=== PATIENT | male | born 1950 | race Caucasian/White ===

== ENCOUNTER 2022-07-25 20:10 | Inpatient (IN) | payer MEDICARE, MEDICAID ==
[~2022-07-25] VITALS: Ht 188 cm; Wt 140.8 kg
[~2022-07-25 20:10] MED LIST: ALBU0.5N2 IN; ALBUAER3 IN; APIX5TAB PO; BUPR-160 PO; DILT120C54 PO; DONE5TAB11 PO; FLUT110A INH; FURO40TA4 PO; GABA300C10 PO; HYDR-392 PO; INSU1INJ14 SC; LEVO750T8 PO; PANT40T PO; POTA-220 PO; PRIM50TA27 PO; ROPI1TAB PO; ZOLP10TA PO
[2022-07-25 21:24] LABS: Basophils # (auto) 0 10 ^3/uL (0-0.2); Basophils % (auto) 0.1 % (0.0-2.0); Eosinophils # (auto) 0 10 ^3/uL (0-0.8); Eosinophils % (auto) 0.1 % (0.0-7.0); Hematocrit 39.6 % (41.0-53.0); Hemoglobin 12.5 g/dL (13.5-17.5); Lymphocytes # (auto) 0.4 10 ^3/uL (0.4-5.4); Lymphocytes % (auto) 6.6 % (10.0-50.0); Mean Corpuscular Hemoglobin 28.6 pg (28.0-32.0); Mean Corpuscular Hgb Conc. 31.5 g/dL (32.0-36.0); Monocytes # (auto) 0.2 10 ^3/uL (0-1.3); Neutrophils # (auto) 5.9 10 ^3/uL (1.6-8.6); Neutrophils % (auto) 90.2 % (37.0-80.0); Nucleated Red Blood Cells % 0.3 %; Red Blood Cells 4.36 10^6/uL (4.5-5.90); Red Cell Distribution Width 15.3 % (11.8-14.3); White Blood Cell 6.6 10^3/uL (4.4-10.8)
[2022-07-25 21:35] LABS: Albumin 3.5 g/dL (3.4-5.0); BUN/Creatinine Ratio 32.4 (10.0-20.0); Calcium 9.7 mg/dL (8.5-10.1); Potassium 4.6 mmol/L (3.5-5.1)
[2022-07-25 21:37] LABS: Bilirubin, Total 0.3 mg/dL (0.2-1.0); Total Protein 7.8 g/dL (6.4-8.2)
[2022-07-25 21:38] LABS: INR 1.07 (0.9-1.15); Partial Thromboplastin Time 30.1 sec (24.6-33.4)
[2022-07-25] MEDS ORDERED: LACTATED RINGER S IV ONE (23:00)
[2022-07-25] MEDS ORDERED: cefTRIAXone 1GM/50ML D5W 50 ML IV ONE (23:00)
[2022-07-25] MEDS ORDERED: IPRATROPIUM BROM 0.5 MG/2.5ML INH SOL NEB ONE (23:00)
[2022-07-25] MEDS ORDERED: DexAMETHasone SOD PHOS 10MG/1ML VIAL INJ IV ONE (23:00)
[2022-07-25] MEDS ORDERED: ALBUTEROL SULF 2.5 MG/0.5ML(0.5%) NEB SOLN NEB ONE (23:00)
[2022-07-25] MEDS ORDERED: AZITHROMYCIN 500MG/ 250ML 250 ML IV ONE (23:00)
[2022-07-25 23:53] VITALS: BP 115/74
[2022-07-26] VITALS (27 sets, daily range): BP systolic 99–167; BP diastolic 49–96
[2022-07-26] MEDS ORDERED: ONDANSETRON HCL 4 MG/2 ML VIAL IV PRN (05:00)
[2022-07-26] MEDS ORDERED: NITROGLYCERIN 0.4 MG SL TAB SL PRN (05:00)
[2022-07-26] MEDS ORDERED: ALBUTEROL SULF 2.5 MG/0.5ML(0.5%) NEB SOLN NEB PRN (05:00)
[2022-07-26] MEDS ORDERED: ACETAMINOPHEN 325 MG TAB PO PRN (05:00)
[2022-07-26] MEDS ORDERED: IPRATROPIUM BROM 0.5 MG/2.5ML INH SOL NEB SCH (06:00)
[2022-07-26] MEDS: cefTRIAXone 1GM/50ML D5W 50 ML IV SCH (09:19)
[2022-07-26] MEDS ORDERED: AZITHROMYCIN 500MG/ 250ML 250 ML IV SCH (10:00)
[2022-07-26] MEDS: dilTIAZem 120MG ER CAP PO SCH (10:00)
[2022-07-26] MEDS: AZITHROMYCIN 500MG/ 250ML 250 ML IV SCH (10:47)
[2022-07-26] MEDS: methylPREDNISolone SOD SUCC 125 MG/2 ML VL IV SCH ×2 (10:47→22:00)
[2022-07-26] MEDS: FUROSEMIDE 40 MG TAB PO SCH (10:48)
[2022-07-26] MEDS: APIXABAN 5 MG TAB PO SCH ×2 (10:48→22:00)
[2022-07-26] MEDS: traMADol HCL 50 MG TAB PO PRN (14:52)
[2022-07-26] MEDS: BUDESONIDE (INHALATION) 0.5 MG/2 ML NEB NEB SCH (18:55)
[2022-07-26] MEDS: ALBUTEROL SULF 2.5 MG/0.5ML(0.5%) NEB SOLN NEB SCH (18:55)
[2022-07-26] MEDS: IPRATROPIUM BROM 0.5 MG/2.5ML INH SOL NEB SCH (18:56)
[2022-07-27] VITALS (20 sets, daily range): BP systolic 143–176; BP diastolic 72–94
[2022-07-27 05:48] LABS: Basophils # (auto) 0 10 ^3/uL (0-0.2); Eosinophils # (auto) 0 10 ^3/uL (0-0.8); Hemoglobin 11.5 g/dL (13.5-17.5); Lymphocytes # (auto) 0.4 10 ^3/uL (0.4-5.4); Lymphocytes % (auto) 7.1 % (10.0-50.0); Mean Corpuscular Hemoglobin 29.7 pg (28.0-32.0); Mean Corpuscular Hgb Conc. 32.9 g/dL (32.0-36.0); Mean Corpuscular Volume 90.3 fL (80.0-100.0); Monocytes # (auto) 0.2 10 ^3/uL (0-1.3); Monocytes % (auto) 3.6 % (0.0-12.0); Neutrophils # (auto) 5.4 10 ^3/uL (1.6-8.6); Neutrophils % (auto) 89.3 % (37.0-80.0); Nucleated Red Blood Cells % 0.1 %; Red Blood Cells 3.87 10^6/uL (4.5-5.90); White Blood Cell 6.1 10^3/uL (4.4-10.8)
[2022-07-27 06:13] LABS: Calcium 9.5 mg/dL (8.5-10.1)
[2022-07-27] MEDS: traMADol HCL 50 MG TAB PO PRN (06:23)
[2022-07-27 06:29] LABS: Albumin 3.1 g/dL (3.4-5.0); BUN/Creatinine Ratio 29.9 (10.0-20.0); Bilirubin, Total 0.2 mg/dL (0.2-1.0); Total Protein 6.9 g/dL (6.4-8.2)
[2022-07-27] MEDS: IPRATROPIUM BROM 0.5 MG/2.5ML INH SOL NEB SCH ×4 (07:11→18:15)
[2022-07-27] MEDS: ALBUTEROL SULF 2.5 MG/0.5ML(0.5%) NEB SOLN NEB SCH ×4 (07:11→18:15)
[2022-07-27] MEDS: BUDESONIDE (INHALATION) 0.5 MG/2 ML NEB NEB SCH ×2 (07:12→18:16)
[2022-07-27] MEDS: cefTRIAXone 1GM/50ML D5W 50 ML IV SCH (09:01)
[2022-07-27] MEDS: dilTIAZem 120MG ER CAP PO SCH (10:00)
[2022-07-27] MEDS ORDERED: hydrALAZINE HCL 20 MG/ML VL IV PRN (10:15)
[2022-07-27] MEDS: methylPREDNISolone SOD SUCC 125 MG/2 ML VL IV SCH ×2 (10:42→22:04)
[2022-07-27] MEDS: AZITHROMYCIN 500MG/ 250ML 250 ML IV SCH (10:42)
[2022-07-27] MEDS: ALLOPURINOL 100 MG TAB PO SCH (10:43)
[2022-07-27] MEDS: APIXABAN 5 MG TAB PO SCH ×2 (10:43→22:04)
[2022-07-27] MEDS: FUROSEMIDE 40 MG TAB PO SCH (10:43)
[2022-07-28] VITALS (21 sets, daily range): BP systolic 120–169; BP diastolic 58–96
[2022-07-28] MEDS: ALBUTEROL SULF 2.5 MG/0.5ML(0.5%) NEB SOLN NEB SCH ×4 (00:24→20:40)
[2022-07-28] MEDS: IPRATROPIUM BROM 0.5 MG/2.5ML INH SOL NEB SCH ×4 (00:24→20:40)
[2022-07-28] MEDS: BUDESONIDE (INHALATION) 0.5 MG/2 ML NEB NEB SCH ×2 (05:54→20:40)
[2022-07-28] MEDS: cefTRIAXone 1GM/50ML D5W 50 ML IV SCH (09:14)
[2022-07-28 09:39] LABS: Basophils # (auto) 0 10 ^3/uL (0-0.2); Basophils % (auto) 0.3 % (0.0-2.0); Eosinophils # (auto) 0 10 ^3/uL (0-0.8); Hematocrit 40.3 % (41.0-53.0); Hemoglobin 12.7 g/dL (13.5-17.5); Lymphocytes # (auto) 0.5 10 ^3/uL (0.4-5.4); Lymphocytes % (auto) 7.9 % (10.0-50.0); Mean Corpuscular Hemoglobin 28.6 pg (28.0-32.0); Mean Corpuscular Hgb Conc. 31.4 g/dL (32.0-36.0); Monocytes # (auto) 0.4 10 ^3/uL (0-1.3); Monocytes % (auto) 6.6 % (0.0-12.0); Neutrophils # (auto) 5.8 10 ^3/uL (1.6-8.6); Neutrophils % (auto) 85.2 % (37.0-80.0); Nucleated Red Blood Cells % 0.2 %; Red Blood Cells 4.42 10^6/uL (4.5-5.90); Red Cell Distribution Width 15.2 % (11.8-14.3); White Blood Cell 6.8 10^3/uL (4.4-10.8)
[2022-07-28 09:55] LABS: Albumin 3.2 g/dL (3.4-5.0); Calcium 9.9 mg/dL (8.5-10.1); Potassium 4.2 mmol/L (3.5-5.1)
[2022-07-28 09:59] LABS: BUN/Creatinine Ratio 28.7 (10.0-20.0); Bilirubin, Total 0.3 mg/dL (0.2-1.0); Total Protein 6.8 g/dL (6.4-8.2)
[2022-07-28] MEDS: dilTIAZem 120MG ER CAP PO SCH (10:00)
[2022-07-28] MEDS: AZITHROMYCIN 500MG/ 250ML 250 ML IV SCH (10:09)
[2022-07-28] MEDS: APIXABAN 5 MG TAB PO SCH ×2 (10:10→22:09)
[2022-07-28] MEDS: ALLOPURINOL 100 MG TAB PO SCH (10:10)
[2022-07-28] MEDS: FUROSEMIDE 40 MG TAB PO SCH (10:10)
[2022-07-28] MEDS: methylPREDNISolone SOD SUCC 125 MG/2 ML VL IV SCH ×2 (10:11→22:08)
[2022-07-28] MEDS: traMADol HCL 50 MG TAB PO PRN ×2 (10:39→21:18)
[2022-07-28] MEDS: ROPINIROLE 4 MG PO SCH (22:08)
[2022-07-29] VITALS (26 sets, daily range): BP systolic 119–167; BP diastolic 67–104
[2022-07-29] MEDS: IPRATROPIUM BROM 0.5 MG/2.5ML INH SOL NEB SCH ×5 (00:06→23:36)
[2022-07-29] MEDS: ALBUTEROL SULF 2.5 MG/0.5ML(0.5%) NEB SOLN NEB SCH ×5 (00:06→23:36)
[2022-07-29 05:41] LABS: Basophils # (auto) 0 10 ^3/uL (0-0.2); Eosinophils # (auto) 0 10 ^3/uL (0-0.8); Hematocrit 41.4 % (41.0-53.0); Hemoglobin 13.2 g/dL (13.5-17.5); Lymphocytes # (auto) 0.4 10 ^3/uL (0.4-5.4); Lymphocytes % (auto) 5.7 % (10.0-50.0); Mean Corpuscular Hemoglobin 28.9 pg (28.0-32.0); Mean Corpuscular Hgb Conc. 31.9 g/dL (32.0-36.0); Mean Corpuscular Volume 90.7 fL (80.0-100.0); Monocytes # (auto) 0.2 10 ^3/uL (0-1.3); Monocytes % (auto) 3.2 % (0.0-12.0); Neutrophils # (auto) 6.9 10 ^3/uL (1.6-8.6); Neutrophils % (auto) 91.1 % (37.0-80.0); Nucleated Red Blood Cells % 0.3 %; Red Blood Cells 4.57 10^6/uL (4.5-5.90); White Blood Cell 7.6 10^3/uL (4.4-10.8)
[2022-07-29] MEDS: BUDESONIDE (INHALATION) 0.5 MG/2 ML NEB NEB SCH ×2 (06:10→18:03)
[2022-07-29 06:21] LABS: Albumin 3.2 g/dL (3.4-5.0); Calcium 9.6 mg/dL (8.5-10.1); Potassium 4.2 mmol/L (3.5-5.1)
[2022-07-29 06:24] LABS: BUN/Creatinine Ratio 33.7 (10.0-20.0); Bilirubin, Total 0.4 mg/dL (0.2-1.0); Total Protein 6.9 g/dL (6.4-8.2)
[2022-07-29] MEDS: ROPINIROLE 4 MG PO SCH ×3 (06:40→22:01)
[2022-07-29] MEDS: traMADol HCL 50 MG TAB PO PRN (07:47)
[2022-07-29] MEDS: cefTRIAXone 1GM/50ML D5W 50 ML IV SCH (09:13)
[2022-07-29] MEDS: FUROSEMIDE 40 MG TAB PO SCH (10:10)
[2022-07-29] MEDS: dilTIAZem 120MG ER CAP PO SCH (10:10)
[2022-07-29] MEDS: APIXABAN 5 MG TAB PO SCH ×2 (10:10→22:01)
[2022-07-29] MEDS: methylPREDNISolone SOD SUCC 125 MG/2 ML VL IV SCH ×2 (10:11→22:01)
[2022-07-29] MEDS: ALLOPURINOL 100 MG TAB PO SCH (10:11)
[2022-07-29] MEDS: AZITHROMYCIN 500MG/ 250ML 250 ML IV SCH (10:11)
[2022-07-29] MEDS: MORPHINE SULFATE INJ 2 MG/ml SYRG IV PRN (14:43)
[2022-07-30] VITALS (18 sets, daily range): BP systolic 125–163; BP diastolic 71–94
[2022-07-30] MEDS: ROPINIROLE 4 MG PO SCH ×2 (06:17→14:00)
[2022-07-30] MEDS: ALBUTEROL SULF 2.5 MG/0.5ML(0.5%) NEB SOLN NEB SCH ×2 (06:26→11:23)
[2022-07-30] MEDS: BUDESONIDE (INHALATION) 0.5 MG/2 ML NEB NEB SCH (06:26)
[2022-07-30] MEDS: IPRATROPIUM BROM 0.5 MG/2.5ML INH SOL NEB SCH ×2 (06:26→11:23)
[2022-07-30] MEDS: cefTRIAXone 1GM/50ML D5W 50 ML IV SCH (08:28)
[2022-07-30] MEDS: APIXABAN 5 MG TAB PO SCH (10:17)
[2022-07-30] MEDS: AZITHROMYCIN 500MG/ 250ML 250 ML IV SCH (10:17)
[2022-07-30] MEDS: ALLOPURINOL 100 MG TAB PO SCH (10:17)
[2022-07-30] MEDS: dilTIAZem 120MG ER CAP PO SCH (10:18)
[2022-07-30] MEDS: methylPREDNISolone SOD SUCC 125 MG/2 ML VL IV SCH (10:19)
[2022-07-30] MEDS: MORPHINE SULFATE INJ 2 MG/ml SYRG IV PRN (10:38)
[2022-07-30] MEDS: FUROSEMIDE 40 MG TAB PO SCH (10:41)
[2022-07-30] MEDS ORDERED: PRED20TA2 PO (15:34)
[2022-07-30] MEDS ORDERED: LEVO500T31 PO (15:34)
== END 2022-07-30 16:58 | disposition home or self-care (01) | DRG 177 ==
LOC: ER 20:10 → TELE 07-26 04:59 → DOU IN ICU 07-26 09:35
PROVIDERS: ADMIT Nurse Practitioner; ATTEND Nurse Practitioner Acute Care
PROC: 5A09357 Assistance with Respiratory Ventilation, Less than 24 Consecutive Hours, Continuous Positive Airway Pressure (ICD-10-PCS; principal; 2022-07-25)
PROC: 5A09357 Assistance with Respiratory Ventilation, Less than 24 Consecutive Hours, Continuous Positive Airway Pressure (ICD-10-PCS; 2022-07-26)
PROC: 5A09357 Assistance with Respiratory Ventilation, Less than 24 Consecutive Hours, Continuous Positive Airway Pressure (ICD-10-PCS; 2022-07-28)
DX: J15.6 Pneumonia due to other Gram-negative bacteria (principal); I50.21 Acute systolic (congestive) heart failure; J96.21 Acute and chronic respiratory failure with hypoxia; J96.22 Acute and chronic respiratory failure with hypercapnia; J44.1 Chronic obstructive pulmonary disease with (acute) exacerbation; E87.29 Other acidosis; E87.1 Hypo-osmolality and hyponatremia; J44.0 Chronic obstructive pulmonary disease with (acute) lower respiratory infection; E11.9 Type 2 diabetes mellitus without complications; M10.9 Gout, unspecified; R00.1 Bradycardia, unspecified; R79.89 Other specified abnormal findings of blood chemistry; I11.0 Hypertensive heart disease with heart failure; E86.0 Dehydration; D64.9 Anemia, unspecified; E66.01 Morbid (severe) obesity due to excess calories; G25.81 Restless legs syndrome; G47.33 Obstructive sleep apnea (adult) (pediatric); Z68.39 Body mass index [BMI] 39.0-39.9, adult; Z88.5 Allergy status to narcotic agent
CPT/HCPCS: 36415; 36600; 71045; 80053; 82805; 83036; 83880; 84484; 85025; 85379; 85610; 85730; 87081; 93005; 93306; 94640; 94660; 96365; 96366; 96368; 96375; 99291; G0378; J0696; J1100

== ENCOUNTER → 2022-09-18 | Outpatient (CLI) | payer MEDICARE, MEDICAID ==
[~2022-09-18] MED LIST changes: -BUPR-160 PO; +BUPR-346 PO; +GABA-1250 PO; -GABA300C10 PO; +LEVO500T31 PO; +PRED20TA2 PO
== END | disposition home or self-care (01) ==
LOC: RT 14:40
PROVIDERS: ATTEND Internal Medicine Pulmonary Disease
DX: J44.9 Chronic obstructive pulmonary disease, unspecified (principal)
CPT/HCPCS: 36600; 82805

== ENCOUNTER 2023-01-07 11:34 | Inpatient (IN) | payer BC, MEDICAID ==
[~2023-01-07] VITALS: Ht 185.4 cm; Wt 139.5 kg
[2023-01-07] VITALS (24 sets, daily range): BP systolic 92–178; BP diastolic 31–83; PULSE 53–94; RESP 12–26; TEMP 98–98.4; O2SAT 93–100
[2023-01-07 12:03] LABS: Basophils # (auto) 0.1 10 ^3/uL (0-0.2); Basophils % (auto) 0.6 % (0.0-2.0); Eosinophils # (auto) 0.2 10 ^3/uL (0-0.8); Lymphocytes # (auto) 1.3 10 ^3/uL (0.4-5.4); Mean Corpuscular Hemoglobin 24.4 pg (28.0-32.0); Mean Corpuscular Hgb Conc. 29.4 g/dL (32.0-36.0); Monocytes # (auto) 0.7 10 ^3/uL (0-1.3); Neutrophils # (auto) 6.5 10 ^3/uL (1.6-8.6); Red Blood Cells 2.05 10^6/uL (4.5-5.90)
[2023-01-07 12:05] LABS: Eosinophils % (auto) 2.8 % (0.0-7.0); Lymphocytes % (auto) 14.4 % (10.0-50.0); Mean Corpuscular Volume 83.1 fL (80.0-100.0); Monocytes % (auto) 8.5 % (0.0-12.0); Neutrophils % (auto) 73.7 % (37.0-80.0); Nucleated Red Blood Cells % 1.7 %; White Blood Cell 8.8 10^3/uL (4.4-10.8)
[2023-01-07 12:08] LABS: Red Cell Distribution Width 22.5 % (11.8-14.3)
[2023-01-07] MEDS ORDERED: NOREPINEPHRINE 8 MG/250ML KIT 250 ML IV SCH (12:15)
[2023-01-07 12:18] LABS: Alanine Aminotransferase 26 U/L (7-40); Albumin 3.7 g/dL (3.2-4.8); Alkaline Phosphatase 56 U/L (46-116); Anion Gap 2 (5-15); Aspartate Aminotransferase 24 U/L (13-40); BUN/Creatinine Ratio 32.7 (10.0-20.0); Blood Urea Nitrogen 32 mg/dL (9-23); Calcium 8.4 mg/dL (8.7-10.4); Carbon Dioxide 33 mmol/L (20-30); Chloride 107 mmol/L (98-107); Glucose 126 mg/dL (74-106); Potassium 4.5 mmol/L (3.5-5.1); Sodium 142 mmol/L (136-145)
[2023-01-07 12:19] LABS: Bilirubin, Total 0.3 mg/dL (0.2-1.0); Total Protein 5.5 g/dL (5.7-8.2)
[2023-01-07] MEDS ORDERED: ALBUTEROL SULF 2.5 MG/0.5ML(0.5%) NEB SOLN NEB PRN (12:45)
[2023-01-07] MEDS ORDERED: FUROSEMIDE 20 MG/2 ML VIAL IV ONE (12:45)
[2023-01-07] MEDS ORDERED: PANTOPRAZOLE 40mg/50ML NS AE 50 ML IV ONE (13:00)
[2023-01-07] MEDS ORDERED: MORPHINE SULFATE INJ 2 MG/ml SYRG IV PRN (13:00)
[2023-01-07] MEDS ORDERED: NITROGLYCERIN 0.4 MG SL TAB SL PRN (13:00)
[2023-01-07] MEDS ORDERED: DEXTROSE (50%) 50ML SYRG IV PRN (13:00)
[2023-01-07 13:14] LABS: Triglycerides 185 mg/dL (< 150)
[2023-01-07 13:15] LABS: LDL Cholesterol 44 mg/dL (< 100)
[2023-01-07] MEDS ORDERED: FERROUS SULFATE 325mg EC TAB PO ONE (13:15)
[2023-01-07 13:16] LABS: % Iron Saturation 11.2 % (20-55); HDL Cholesterol 26 mg/dL (40-59)
[2023-01-07 13:17] LABS: Cholesterol 95 mg/dL (< 200)
[2023-01-07] MEDS: IPRATROPIUM BROM 0.5 MG/2.5ML INH SOL NEB SCH ×3 (13:22→22:02)
[2023-01-07] MEDS: ALBUTEROL SULF 2.5 MG/0.5ML(0.5%) NEB SOLN NEB SCH ×3 (13:22→22:02)
[2023-01-07 13:32] LABS: INR 1.21 (0.9-1.15); Prothrombin Time 12.5 sec (9.3-11.8)
[2023-01-07 14:33] LABS: Folate (Folic Acid) 9.13 ng/mL (>5.38)
[2023-01-07] MEDS: InsuLIN REG 1unit/0.01ml Soln (100units/ml) SC SCH ×2 (17:00→21:59)
[2023-01-07] MEDS: ACCU-CHEK COMFORT CURVE STRIP VI SCH ×2 (18:04→21:59)
[2023-01-07] MEDS: FERROUS SULFATE 325mg EC TAB PO SCH (18:45)
[2023-01-07 22:12] LABS: Basophils # (auto) 0.1 10 ^3/uL (0-0.2); Lymphocytes # (auto) 1.3 10 ^3/uL (0.4-5.4); Mean Corpuscular Hgb Conc. 30.4 g/dL (32.0-36.0); Monocytes # (auto) 0.9 10 ^3/uL (0-1.3); Neutrophils % (auto) 72.2 % (37.0-80.0); Red Blood Cells 2.67 10^6/uL (4.5-5.90)
[2023-01-07 22:13] LABS: Basophils % (auto) 0.7 % (0.0-2.0); Eosinophils # (auto) 0.2 10 ^3/uL (0-0.8); Eosinophils % (auto) 2.7 % (0.0-7.0); Hematocrit 22.2 % (41.0-53.0); Lymphocytes % (auto) 14.4 % (10.0-50.0); Mean Corpuscular Hemoglobin 25.3 pg (28.0-32.0); Mean Corpuscular Volume 83.3 fL (80.0-100.0); Neutrophils # (auto) 6.5 10 ^3/uL (1.6-8.6); Nucleated Red Blood Cells % 1.8 %
[2023-01-07 22:21] LABS: Red Cell Distribution Width 20.4 % (11.8-14.3)
[2023-01-07 22:28] LABS: Hemoglobin 6.7 g/dL (13.5-17.5)
[2023-01-08] VITALS (20 sets, daily range): BP systolic 127–146; BP diastolic 51–76; PULSE 68–86; RESP 14–92; TEMP 98.1–98.6; O2SAT 96–100
[2023-01-08 00:36] LABS: Urine Bacteria NONE SEEN /hpf (None Seen); Urine Blood Negative /uL (Negative); Urine Clarity Clear (Clear); Urine Color Colorless (Yellow); Urine Protein, UAD Negative (Negative); Urine Specific Gravity 1.025 (1.001-1.035); Urine Urobilinogen Normal (Negative); Urine WBC 1 /hpf (0 - 3); Urine pH 5.5 (5.0-8.0)
[2023-01-08] MEDS: ALBUTEROL SULF 2.5 MG/0.5ML(0.5%) NEB SOLN NEB SCH ×6 (02:06→22:03)
[2023-01-08] MEDS: IPRATROPIUM BROM 0.5 MG/2.5ML INH SOL NEB SCH ×6 (02:06→22:03)
[2023-01-08 04:34] LABS: Hemoglobin 7.3 g/dL (13.5-17.5)
[2023-01-08 04:35] LABS: Hematocrit 23.5 % (41.0-53.0); Mean Corpuscular Hgb Conc. 30.9 g/dL (32.0-36.0); Red Cell Distribution Width 19.6 % (11.8-14.3); White Blood Cell 8.8 10^3/uL (4.4-10.8)
[2023-01-08 04:42] LABS: Basophils % (manual) 0 (0.0-2.0); Blast Cells 0; Promyelocytes % 0; Reactive Lymphocytes 0
[2023-01-08 06:04] LABS: Anisocytosis Slight; Band Neutrophils % (manual) 2; Eosinophils % (manual) 2 (0-7); Lymphocytes % (manual) 16 (10.0-50.0); Metamyelocytes % 1; Monocytes % (manual) 7 (0-12); Myelocytes % 2; Platelet Estimate Decreased; Stomatocytes Moderate
[2023-01-08] MEDS: InsuLIN REG 1unit/0.01ml Soln (100units/ml) SC SCH ×4 (06:24→21:31)
[2023-01-08] MEDS: ACCU-CHEK COMFORT CURVE STRIP VI SCH ×4 (06:24→21:30)
[2023-01-08] MEDS: FERROUS SULFATE 325mg EC TAB PO SCH (08:33)
[2023-01-08] MEDS ORDERED: FUROSEMIDE 20 MG/2 ML VIAL IV SCH (10:00)
[2023-01-08 12:27] LABS: Hemoglobin 7.7 g/dL (13.5-17.5); Red Cell Distribution Width 19.6 % (11.8-14.3); White Blood Cell 9.3 10^3/uL (4.4-10.8)
[2023-01-08 12:29] LABS: Hematocrit 24.7 % (41.0-53.0); Mean Corpuscular Hemoglobin 26.6 pg (28.0-32.0); Mean Corpuscular Volume 85.8 fL (80.0-100.0); Red Blood Cells 2.88 10^6/uL (4.5-5.90)
[2023-01-08 12:31] LABS: Basophils % (manual) 0 (0.0-2.0); Blast Cells 0; Eosinophils % (manual) 0 (0-7); Myelocytes % 0; Promyelocytes % 0; Reactive Lymphocytes 0
[2023-01-08 12:53] LABS: Band Neutrophils % (manual) 3; Lymphocytes % (manual) 11 (10.0-50.0); Metamyelocytes % 1; Monocytes % (manual) 7 (0-12); Platelet Estimate Decreased
[2023-01-08] MEDS ORDERED: ASCORBIC ACID 500 MG TAB PO ONE (14:45)
[2023-01-08] MEDS ORDERED: HYDROcodone-ACET 7.5/325MG TAB PO PRN (15:00)
[2023-01-08] MEDS ORDERED: ALBUTEROL SULF HFA 90MCG INH 200DOSE IN PRN (15:00)
[2023-01-08] MEDS ORDERED: ARIP5TAB36 PO (15:38)
[2023-01-08] MEDS ORDERED: CHOL20007 PO (15:38)
[2023-01-08] MEDS ORDERED: POTA10TA51 PO (15:38)
[2023-01-08] MEDS ORDERED: PRIM50TA5 PO (15:38)
[2023-01-08] MEDS ORDERED: FLUT1AER17 PO (15:38)
[2023-01-08] MEDS ORDERED: ROPI4TAB6 PO (15:38)
[2023-01-08] MEDS ORDERED: TRAM50TA2 PO (15:38)
[2023-01-08] MEDS ORDERED: TIOT1AER IN (15:38)
[2023-01-08 16:15] LABS: Basophils # (auto) 0 10 ^3/uL (0-0.2); Basophils % (auto) 0.5 % (0.0-2.0); Eosinophils # (auto) 0.2 10 ^3/uL (0-0.8); Eosinophils % (auto) 2.5 % (0.0-7.0); Hematocrit 23.2 % (41.0-53.0); Hemoglobin 7.2 g/dL (13.5-17.5); Lymphocytes # (auto) 1.1 10 ^3/uL (0.4-5.4); Lymphocytes % (auto) 12.7 % (10.0-50.0); Mean Corpuscular Hemoglobin 26.2 pg (28.0-32.0); Mean Corpuscular Hgb Conc. 31.2 g/dL (32.0-36.0); Monocytes # (auto) 0.6 10 ^3/uL (0-1.3); Monocytes % (auto) 6.8 % (0.0-12.0); Neutrophils # (auto) 6.5 10 ^3/uL (1.6-8.6); Neutrophils % (auto) 77.5 % (37.0-80.0); Nucleated Red Blood Cells % 0.6 %; Red Blood Cells 2.77 10^6/uL (4.5-5.90); Red Cell Distribution Width 19.8 % (11.8-14.3); White Blood Cell 8.4 10^3/uL (4.4-10.8)
[2023-01-08] MEDS: DONEPEZIL HYDROCHLORIDE 5 MG TAB PO SCH (18:07)
[2023-01-08] MEDS: GABAPENTIN 300 MG CAP PO SCH (21:30)
[2023-01-08] MEDS: PANTOPRAZOLE 40 MG TAB PO SCH (21:30)
[2023-01-08] MEDS: PRIMIDONE 50 MG TAB PO SCH (21:30)
[2023-01-08 22:11] LABS: Basophils # (auto) 0 10 ^3/uL (0-0.2); Hemoglobin 7.2 g/dL (13.5-17.5); Lymphocytes # (auto) 1.1 10 ^3/uL (0.4-5.4); Lymphocytes % (auto) 13.1 % (10.0-50.0); Monocytes # (auto) 0.7 10 ^3/uL (0-1.3); Neutrophils # (auto) 6.3 10 ^3/uL (1.6-8.6); Nucleated Red Blood Cells % 0.8 %
[2023-01-08 22:13] LABS: Basophils % (auto) 0.6 % (0.0-2.0); Eosinophils # (auto) 0.3 10 ^3/uL (0-0.8); Eosinophils % (auto) 3.1 % (0.0-7.0); Hematocrit 23.7 % (41.0-53.0); Mean Corpuscular Hemoglobin 26.1 pg (28.0-32.0); Mean Corpuscular Hgb Conc. 30.4 g/dL (32.0-36.0); Mean Corpuscular Volume 85.7 fL (80.0-100.0); Monocytes % (auto) 8.1 % (0.0-12.0); Neutrophils % (auto) 75.1 % (37.0-80.0); Red Blood Cells 2.77 10^6/uL (4.5-5.90); White Blood Cell 8.3 10^3/uL (4.4-10.8)
[2023-01-08 22:15] LABS: Red Cell Distribution Width 20.5 % (11.8-14.3)
[2023-01-09] VITALS (19 sets, daily range): BP systolic 112–135; BP diastolic 64–83; PULSE 63–100; RESP 14–20; TEMP 98–98.7; O2SAT 64–100
[2023-01-09] MEDS: ALBUTEROL SULF 2.5 MG/0.5ML(0.5%) NEB SOLN NEB SCH ×6 (02:10→22:16)
[2023-01-09] MEDS: IPRATROPIUM BROM 0.5 MG/2.5ML INH SOL NEB SCH ×6 (02:10→22:15)
[2023-01-09] MEDS: ACCU-CHEK COMFORT CURVE STRIP VI SCH ×4 (06:19→21:16)
[2023-01-09] MEDS: InsuLIN REG 1unit/0.01ml Soln (100units/ml) SC SCH ×4 (06:20→21:33)
[2023-01-09 07:14] LABS: Basophils # (auto) 0 10 ^3/uL (0-0.2); Eosinophils # (auto) 0.2 10 ^3/uL (0-0.8); Lymphocytes # (auto) 0.9 10 ^3/uL (0.4-5.4); Monocytes # (auto) 0.6 10 ^3/uL (0-1.3); Neutrophils # (auto) 5.8 10 ^3/uL (1.6-8.6)
[2023-01-09 07:17] LABS: Basophils % (auto) 0.3 % (0.0-2.0); Eosinophils % (auto) 2.9 % (0.0-7.0); Hematocrit 24.7 % (41.0-53.0); Hemoglobin 7.7 g/dL (13.5-17.5); Lymphocytes % (auto) 11.7 % (10.0-50.0); Mean Corpuscular Hemoglobin 26.6 pg (28.0-32.0); Mean Corpuscular Hgb Conc. 31.1 g/dL (32.0-36.0); Mean Corpuscular Volume 85.5 fL (80.0-100.0); Monocytes % (auto) 7.9 % (0.0-12.0); Neutrophils % (auto) 77.2 % (37.0-80.0); Nucleated Red Blood Cells % 0.8 %; Red Blood Cells 2.89 10^6/uL (4.5-5.90); Red Cell Distribution Width 20.2 % (11.8-14.3); White Blood Cell 7.5 10^3/uL (4.4-10.8)
[2023-01-09 07:42] LABS: Anion Gap 4 (5-15); Carbon Dioxide 34 mmol/L (20-30); Chloride 103 mmol/L (98-107); INR 1.16 (0.9-1.15); Partial Thromboplastin Time 28.5 SEC (24.5-34.5); Potassium 3.9 mmol/L (3.5-5.1); Prothrombin Time 12.1 sec (9.3-11.8); Sodium 141 mmol/L (136-145)
[2023-01-09 07:43] LABS: Calcium 8.7 mg/dL (8.5-10.1)
[2023-01-09 07:48] LABS: BUN/Creatinine Ratio 13.2 (10.0-20.0); Glucose 100 mg/dL (74-106)
[2023-01-09 07:56] LABS: Blood Urea Nitrogen 9 mg/dL (9-23)
[2023-01-09] MEDS: PRIMIDONE 50 MG TAB PO SCH ×2 (09:32→21:16)
[2023-01-09] MEDS: PANTOPRAZOLE 40 MG TAB PO SCH ×2 (09:32→21:15)
[2023-01-09] MEDS: GABAPENTIN 300 MG CAP PO SCH ×2 (09:32→21:15)
[2023-01-09] MEDS: FERROUS SULFATE 325mg EC TAB PO SCH (09:33)
[2023-01-09] MEDS: POTASSIUM CHL 20 Meq TABLET PO SCH (09:33)
[2023-01-09] MEDS: ASCORBIC ACID 500 MG TAB PO SCH (09:33)
[2023-01-09] MEDS: buPROPion HCL 100 MG TAB PO SCH (09:34)
[2023-01-09] MEDS: DONEPEZIL HYDROCHLORIDE 5 MG TAB PO SCH (17:53)
[2023-01-10] VITALS (22 sets, daily range): BP systolic 116–142; BP diastolic 49–86; PULSE 62–91; RESP 16–24; TEMP 98.3–99.9; O2SAT 93–100
[2023-01-10] MEDS: ALBUTEROL SULF 2.5 MG/0.5ML(0.5%) NEB SOLN NEB SCH ×6 (02:23→22:38)
[2023-01-10] MEDS: IPRATROPIUM BROM 0.5 MG/2.5ML INH SOL NEB SCH ×6 (02:23→22:38)
[2023-01-10 06:26] LABS: Anion Gap 2 (5-15); Carbon Dioxide 33 mmol/L (20-30); Chloride 105 mmol/L (98-107); Potassium 4.8 mmol/L (3.5-5.1); Sodium 140 mmol/L (136-145)
[2023-01-10 06:28] LABS: Calcium 8.8 mg/dL (8.7-10.4)
[2023-01-10 06:32] LABS: BUN/Creatinine Ratio 6.4 (10.0-20.0); Blood Urea Nitrogen 5 mg/dL (9-23); Glucose 101 mg/dL (74-106)
[2023-01-10] MEDS: ACCU-CHEK COMFORT CURVE STRIP VI SCH ×4 (06:36→22:51)
[2023-01-10] MEDS: InsuLIN REG 1unit/0.01ml Soln (100units/ml) SC SCH ×4 (06:36→22:58)
[2023-01-10 07:44] LABS: Hemoglobin 7.4 g/dL (13.5-17.5)
[2023-01-10 07:45] LABS: Hematocrit 24.4 % (41.0-53.0)
[2023-01-10] MEDS: POTASSIUM CHL 20 Meq TABLET PO SCH (09:27)
[2023-01-10] MEDS: buPROPion HCL 100 MG TAB PO SCH (09:27)
[2023-01-10] MEDS: PRIMIDONE 50 MG TAB PO SCH ×2 (09:27→22:50)
[2023-01-10] MEDS: FERROUS SULFATE 325mg EC TAB PO SCH (09:28)
[2023-01-10] MEDS: GABAPENTIN 300 MG CAP PO SCH ×2 (09:28→22:50)
[2023-01-10] MEDS: ASCORBIC ACID 500 MG TAB PO SCH (09:28)
[2023-01-10] MEDS: PANTOPRAZOLE 40 MG TAB PO SCH ×2 (09:28→22:51)
[2023-01-10] MEDS ORDERED: traMADol HCL 50 MG TAB PO PRN (16:45)
[2023-01-10] MEDS: ALLOPURINOL 100 MG TAB PO SCH (17:04)
[2023-01-10] MEDS: DONEPEZIL HYDROCHLORIDE 5 MG TAB PO SCH (17:04)
[2023-01-11] VITALS (20 sets, daily range): BP systolic 110–139; BP diastolic 46–81; PULSE 70–101; RESP 18–26; TEMP 98.3–98.9; O2SAT 93–100
[2023-01-11] MEDS: IPRATROPIUM BROM 0.5 MG/2.5ML INH SOL NEB SCH ×6 (02:18→22:27)
[2023-01-11] MEDS: ALBUTEROL SULF 2.5 MG/0.5ML(0.5%) NEB SOLN NEB SCH ×6 (02:19→22:27)
[2023-01-11 06:37] LABS: INR 1.26 (0.9-1.15)
[2023-01-11 06:44] LABS: Basophils # (auto) 0 10 ^3/uL (0-0.2); Eosinophils # (auto) 0.1 10 ^3/uL (0-0.8); Mean Corpuscular Volume 86.9 fL (80.0-100.0); Monocytes # (auto) 1.2 10 ^3/uL (0-1.3); Monocytes % (auto) 12.2 % (0.0-12.0); Neutrophils # (auto) 7.6 10 ^3/uL (1.6-8.6); Nucleated Red Blood Cells % 0.2 %
[2023-01-11 06:46] LABS: Basophils % (auto) 0.1 % (0.0-2.0); Eosinophils % (auto) 1.3 % (0.0-7.0); Hematocrit 25.2 % (41.0-53.0); Hemoglobin 7.7 g/dL (13.5-17.5); Lymphocytes # (auto) 1.1 10 ^3/uL (0.4-5.4); Lymphocytes % (auto) 10.9 % (10.0-50.0); Mean Corpuscular Hemoglobin 26.6 pg (28.0-32.0); Mean Corpuscular Hgb Conc. 30.6 g/dL (32.0-36.0); Neutrophils % (auto) 75.5 % (37.0-80.0); Red Cell Distribution Width 21.1 % (11.8-14.3)
[2023-01-11 06:54] LABS: Calcium 8.9 mg/dL (8.7-10.4); Chloride 103 mmol/L (98-107); Potassium 4.4 mmol/L (3.5-5.1); Sodium 139 mmol/L (136-145)
[2023-01-11 06:55] LABS: Anion Gap 0 (5-15); Carbon Dioxide 36 mmol/L (20-30)
[2023-01-11 07:00] LABS: BUN/Creatinine Ratio 10.3 (10.0-20.0); Blood Urea Nitrogen 8 mg/dL (9-23); Glucose 114 mg/dL (74-106)
[2023-01-11] MEDS: InsuLIN REG 1unit/0.01ml Soln (100units/ml) SC SCH ×4 (07:00→21:44)
[2023-01-11 07:02] LABS: Folate (Folic Acid) 10.2 ng/mL (>5.38)
[2023-01-11] MEDS: ACCU-CHEK COMFORT CURVE STRIP VI SCH ×4 (07:22→21:44)
[2023-01-11] MEDS: FERROUS SULFATE 325mg EC TAB PO SCH (08:00)
[2023-01-11] MEDS: GABAPENTIN 300 MG CAP PO SCH ×2 (09:36→21:43)
[2023-01-11] MEDS: PANTOPRAZOLE 40 MG TAB PO SCH ×2 (09:36→21:43)
[2023-01-11] MEDS: ALLOPURINOL 100 MG TAB PO SCH ×2 (09:36→21:43)
[2023-01-11] MEDS: buPROPion HCL 100 MG TAB PO SCH (10:00)
[2023-01-11] MEDS: ASCORBIC ACID 500 MG TAB PO SCH (10:00)
[2023-01-11] MEDS: PRIMIDONE 50 MG TAB PO SCH ×2 (10:00→21:43)
[2023-01-11] MEDS: POTASSIUM CHL 20 Meq TABLET PO SCH (10:00)
[2023-01-11] MEDS ORDERED: PROPOFOL 10 MG/ML 20 ML IV ONE (13:23)
[2023-01-11] MEDS ORDERED: LIDOCAINE 2% (LOCAL ANESTH.) PF 5ml SDV ONE (13:23)
[2023-01-11] MEDS ORDERED: LIDOCAINE 2%HCL (LOCAL ANESTH.) INJ 10ml MDV ONE (13:28)
[2023-01-11] MEDS: DONEPEZIL HYDROCHLORIDE 5 MG TAB PO SCH (17:56)
[2023-01-11] MEDS: NYSTATIN (MOUTH-THROAT) 500,000 UNITS/5 ML SUSP MT SCH ×2 (17:56→21:43)
[2023-01-11] MEDS: SUCRALFATE 1 GM/10 ML ORAL SUSP PO SCH ×2 (17:56→21:43)
[2023-01-12] VITALS (22 sets, daily range): BP systolic 114–124; BP diastolic 59–79; PULSE 63–94; RESP 18–22; TEMP 98.2–99.6; O2SAT 90–99
[2023-01-12] MEDS: IPRATROPIUM BROM 0.5 MG/2.5ML INH SOL NEB SCH ×6 (02:03→22:18)
[2023-01-12] MEDS: ALBUTEROL SULF 2.5 MG/0.5ML(0.5%) NEB SOLN NEB SCH ×6 (02:03→22:18)
[2023-01-12] MEDS: SUCRALFATE 1 GM/10 ML ORAL SUSP PO SCH ×4 (06:21→22:20)
[2023-01-12] MEDS: NYSTATIN (MOUTH-THROAT) 500,000 UNITS/5 ML SUSP MT SCH ×4 (06:21→22:20)
[2023-01-12] MEDS: InsuLIN REG 1unit/0.01ml Soln (100units/ml) SC SCH ×4 (06:24→22:43)
[2023-01-12] MEDS: ACCU-CHEK COMFORT CURVE STRIP VI SCH ×4 (06:24→22:20)
[2023-01-12 06:43] LABS: Basophils # (auto) 0 10 ^3/uL (0-0.2); Eosinophils # (auto) 0.1 10 ^3/uL (0-0.8); Hemoglobin 7.5 g/dL (13.5-17.5); Monocytes # (auto) 1.4 10 ^3/uL (0-1.3)
[2023-01-12 06:44] LABS: Chloride 100 mmol/L (98-107); Potassium 4.2 mmol/L (3.5-5.1); Sodium 140 mmol/L (136-145)
[2023-01-12 06:45] LABS: Basophils % (auto) 0.4 % (0.0-2.0); Eosinophils % (auto) 1.1 % (0.0-7.0); Hematocrit 24.8 % (41.0-53.0); Lymphocytes # (auto) 0.8 10 ^3/uL (0.4-5.4); Lymphocytes % (auto) 7.3 % (10.0-50.0); Mean Corpuscular Hemoglobin 26.1 pg (28.0-32.0); Mean Corpuscular Hgb Conc. 30.2 g/dL (32.0-36.0); Mean Corpuscular Volume 86.4 fL (80.0-100.0); Monocytes % (auto) 12.3 % (0.0-12.0); Neutrophils # (auto) 9.2 10 ^3/uL (1.6-8.6); Neutrophils % (auto) 78.9 % (37.0-80.0); Nucleated Red Blood Cells % 0.1 %; Red Blood Cells 2.87 10^6/uL (4.5-5.90); White Blood Cell 11.7 10^3/uL (4.4-10.8)
[2023-01-12 06:49] LABS: Red Cell Distribution Width 20.9 % (11.8-14.3)
[2023-01-12 06:50] LABS: BUN/Creatinine Ratio 12.8 (10.0-20.0); Blood Urea Nitrogen 11 mg/dL (9-23); Glucose 104 mg/dL (74-106)
[2023-01-12 06:54] LABS: Anion Gap 2 (5-15); Carbon Dioxide 35 mmol/L (20-30)
[2023-01-12] MEDS: ALLOPURINOL 100 MG TAB PO SCH ×2 (09:37→17:00)
[2023-01-12] MEDS: PRIMIDONE 50 MG TAB PO SCH ×2 (09:37→22:20)
[2023-01-12] MEDS: PANTOPRAZOLE 40 MG TAB PO SCH ×2 (09:37→22:20)
[2023-01-12] MEDS: ASCORBIC ACID 500 MG TAB PO SCH (09:37)
[2023-01-12] MEDS: buPROPion HCL 100 MG TAB PO SCH (09:37)
[2023-01-12] MEDS: GABAPENTIN 300 MG CAP PO SCH ×2 (09:37→22:20)
[2023-01-12] MEDS: FERROUS SULFATE 325mg EC TAB PO SCH (09:37)
[2023-01-12] MEDS: HYDROcodone-ACET 7.5/325MG TAB PO PRN (09:59)
[2023-01-12] MEDS: DONEPEZIL HYDROCHLORIDE 5 MG TAB PO SCH (16:56)
[2023-01-13] VITALS (21 sets, daily range): BP systolic 113–124; BP diastolic 48–58; PULSE 67–89; RESP 15–24; TEMP 97.6–98.9; O2SAT 92–100
[2023-01-13] MEDS: IPRATROPIUM BROM 0.5 MG/2.5ML INH SOL NEB SCH ×6 (02:07→23:29)
[2023-01-13] MEDS: ALBUTEROL SULF 2.5 MG/0.5ML(0.5%) NEB SOLN NEB SCH ×6 (02:07→23:29)
[2023-01-13] MEDS: ACCU-CHEK COMFORT CURVE STRIP VI SCH ×4 (06:39→22:00)
[2023-01-13] MEDS: SUCRALFATE 1 GM/10 ML ORAL SUSP PO SCH ×4 (06:39→23:05)
[2023-01-13] MEDS: NYSTATIN (MOUTH-THROAT) 500,000 UNITS/5 ML SUSP MT SCH ×4 (06:39→23:05)
[2023-01-13] MEDS: InsuLIN REG 1unit/0.01ml Soln (100units/ml) SC SCH ×4 (06:56→22:00)
[2023-01-13] MEDS: PANTOPRAZOLE 40 MG TAB PO SCH ×2 (08:49→23:06)
[2023-01-13] MEDS: ASCORBIC ACID 500 MG TAB PO SCH (08:49)
[2023-01-13] MEDS: PRIMIDONE 50 MG TAB PO SCH ×2 (08:50→23:06)
[2023-01-13] MEDS: ALLOPURINOL 100 MG TAB PO SCH ×2 (08:50→17:27)
[2023-01-13] MEDS: GABAPENTIN 300 MG CAP PO SCH ×2 (08:58→23:06)
[2023-01-13] MEDS: buPROPion HCL 100 MG TAB PO SCH (08:58)
[2023-01-13] MEDS: FERROUS SULFATE 325mg EC TAB PO SCH (08:59)
[2023-01-13] MEDS: HYDROcodone-ACET 7.5/325MG TAB PO PRN (09:04)
[2023-01-13] MEDS: ACETAMINOPHEN 650 mg PER 20.3 mL UD PO PRN ×2 (17:26→23:06)
[2023-01-13] MEDS: DONEPEZIL HYDROCHLORIDE 5 MG TAB PO SCH (17:27)
[2023-01-14] VITALS (19 sets, daily range): BP systolic 132–143; BP diastolic 59–68; PULSE 62–95; RESP 16–24; TEMP 98.2–98.8; O2SAT 92–100
[2023-01-14] MEDS: IPRATROPIUM BROM 0.5 MG/2.5ML INH SOL NEB SCH ×6 (02:12→22:39)
[2023-01-14] MEDS: ALBUTEROL SULF 2.5 MG/0.5ML(0.5%) NEB SOLN NEB SCH ×6 (02:12→22:40)
[2023-01-14] MEDS: SUCRALFATE 1 GM/10 ML ORAL SUSP PO SCH ×4 (05:46→23:58)
[2023-01-14] MEDS: NYSTATIN (MOUTH-THROAT) 500,000 UNITS/5 ML SUSP MT SCH ×4 (05:46→23:58)
[2023-01-14] MEDS: ACCU-CHEK COMFORT CURVE STRIP VI SCH ×4 (05:46→23:58)
[2023-01-14] MEDS: ACETAMINOPHEN 650 mg PER 20.3 mL UD PO PRN (05:55)
[2023-01-14 06:03] LABS: Basophils # (auto) 0 10 ^3/uL (0-0.2); Basophils % (auto) 0.4 % (0.0-2.0); Eosinophils # (auto) 0.3 10 ^3/uL (0-0.8); Hemoglobin 7.1 g/dL (13.5-17.5); Monocytes # (auto) 0.7 10 ^3/uL (0-1.3); Nucleated Red Blood Cells % 0.2 %
[2023-01-14 06:06] LABS: Eosinophils % (auto) 4.4 % (0.0-7.0); Hematocrit 23.5 % (41.0-53.0); Lymphocytes # (auto) 0.8 10 ^3/uL (0.4-5.4); Lymphocytes % (auto) 11.8 % (10.0-50.0); Mean Corpuscular Hemoglobin 26.5 pg (28.0-32.0); Mean Corpuscular Hgb Conc. 30.4 g/dL (32.0-36.0); Monocytes % (auto) 10.4 % (0.0-12.0); Neutrophils # (auto) 4.8 10 ^3/uL (1.6-8.6); Red Cell Distribution Width 19.9 % (11.8-14.3); White Blood Cell 6.6 10^3/uL (4.4-10.8)
[2023-01-14] MEDS: InsuLIN REG 1unit/0.01ml Soln (100units/ml) SC SCH ×3 (06:07→17:00)
[2023-01-14 06:20] LABS: Anion Gap 4 (5-15); Calcium 9.1 mg/dL (8.5-10.1); Carbon Dioxide 35 mmol/L (20-30); Chloride 102 mmol/L (98-107); Potassium 4.5 mmol/L (3.5-5.1); Sodium 141 mmol/L (136-145)
[2023-01-14 06:26] LABS: BUN/Creatinine Ratio 16.3 (10.0-20.0); Blood Urea Nitrogen 13 mg/dL (9-23); Glucose 118 mg/dL (74-106)
[2023-01-14] MEDS: buPROPion HCL 100 MG TAB PO SCH (08:47)
[2023-01-14] MEDS: PRIMIDONE 50 MG TAB PO SCH ×2 (08:48→23:57)
[2023-01-14] MEDS: PANTOPRAZOLE 40 MG TAB PO SCH ×2 (08:48→23:57)
[2023-01-14] MEDS: HYDROcodone-ACET 7.5/325MG TAB PO PRN (08:48)
[2023-01-14] MEDS: GABAPENTIN 300 MG CAP PO SCH ×2 (08:48→23:58)
[2023-01-14] MEDS: ALLOPURINOL 100 MG TAB PO SCH ×2 (08:48→17:57)
[2023-01-14] MEDS: FERROUS SULFATE 325mg EC TAB PO SCH (08:49)
[2023-01-14] MEDS: ASCORBIC ACID 500 MG TAB PO SCH (08:49)
[2023-01-14] MEDS: FUROSEMIDE 40 MG/4 ML VIAL IV SCH (17:57)
[2023-01-14] MEDS: DONEPEZIL HYDROCHLORIDE 5 MG TAB PO SCH (17:57)
[2023-01-14] MEDS: BUDESONIDE (INHALATION) 0.5 MG/2 ML NEB NEB SCH (22:40)
[2023-01-14] MEDS: POTASSIUM CHLORIDE 8 MEQ TAB PO SCH (23:57)
[2023-01-14] MEDS: predniSONE 20 MG TAB PO SCH (23:57)
[2023-01-15] VITALS (16 sets, daily range): BP systolic 113–146; BP diastolic 50–86; PULSE 68–85; RESP 18–22; TEMP 98.2–98.5; O2SAT 93–99
[2023-01-15] MEDS: InsuLIN REG 1unit/0.01ml Soln (100units/ml) SC SCH ×5 (00:05→21:46)
[2023-01-15] MEDS: ALBUTEROL SULF 2.5 MG/0.5ML(0.5%) NEB SOLN NEB SCH ×5 (02:16→19:10)
[2023-01-15] MEDS: IPRATROPIUM BROM 0.5 MG/2.5ML INH SOL NEB SCH ×5 (02:16→19:10)
[2023-01-15 06:18] LABS: Anion Gap 2 (5-15); Carbon Dioxide 39 mmol/L (20-30); Chloride 98 mmol/L (98-107); Potassium 4.6 mmol/L (3.5-5.1); Sodium 139 mmol/L (136-145)
[2023-01-15 06:20] LABS: Calcium 9.2 mg/dL (8.5-10.1)
[2023-01-15 06:24] LABS: BUN/Creatinine Ratio 14.5 (10.0-20.0); Blood Urea Nitrogen 10 mg/dL (9-23); Glucose 148 mg/dL (74-106)
[2023-01-15] MEDS: ACCU-CHEK COMFORT CURVE STRIP VI SCH ×4 (06:54→21:45)
[2023-01-15] MEDS: FUROSEMIDE 40 MG/4 ML VIAL IV SCH ×2 (06:57→19:01)
[2023-01-15] MEDS: SUCRALFATE 1 GM/10 ML ORAL SUSP PO SCH ×4 (06:57→21:39)
[2023-01-15] MEDS: NYSTATIN (MOUTH-THROAT) 500,000 UNITS/5 ML SUSP MT SCH ×4 (06:57→21:39)
[2023-01-15] MEDS: BUDESONIDE (INHALATION) 0.5 MG/2 ML NEB NEB SCH ×2 (07:05→19:10)
[2023-01-15] MEDS: buPROPion HCL 100 MG TAB PO SCH (10:00)
[2023-01-15] MEDS: GABAPENTIN 300 MG CAP PO SCH ×2 (10:48→21:39)
[2023-01-15] MEDS: POTASSIUM CHLORIDE 8 MEQ TAB PO SCH ×2 (10:48→21:41)
[2023-01-15] MEDS: PANTOPRAZOLE 40 MG TAB PO SCH ×2 (10:48→21:40)
[2023-01-15] MEDS: predniSONE 20 MG TAB PO SCH ×2 (10:48→21:40)
[2023-01-15] MEDS: FERROUS SULFATE 325mg EC TAB PO SCH (10:48)
[2023-01-15] MEDS: ASCORBIC ACID 500 MG TAB PO SCH (10:49)
[2023-01-15] MEDS: PRIMIDONE 50 MG TAB PO SCH ×2 (10:49→21:40)
[2023-01-15] MEDS: ALLOPURINOL 100 MG TAB PO SCH ×2 (10:49→19:01)
[2023-01-15] MEDS: HYDROcodone-ACET 7.5/325MG TAB PO PRN (10:57)
[2023-01-15 14:40] LABS: COVID19 ANTIGEN SOFIA FIA NEGATIVE (NEGATIVE)
[2023-01-15] MEDS ORDERED: HYDROcodone-ACET 7.5/325MG TAB PO PRN (19:00)
[2023-01-15] MEDS ORDERED: DONEPEZIL HYDROCHLORIDE 5 MG TAB PO SCH (22:00)
== END 2023-01-15 22:40 | DRG 377 ==
LOC: EDBD 11:34 → ER 11:34 → TELE 12:50 → TELE-EAST 01-08 08:46
PROVIDERS: ADMIT Nurse Practitioner Family; ATTEND Hospitalist
PROC: 30233N1 Transfusion of Nonautologous Red Blood Cells into Peripheral Vein, Percutaneous Approach (ICD-10-PCS; principal; 2023-01-07)
PROC: 05HB33Z Insertion of Infusion Device into Right Basilic Vein, Percutaneous Approach (ICD-10-PCS; 2023-01-07)
PROC: B54MZZA Ultrasonography of Right Upper Extremity Veins, Guidance (ICD-10-PCS; 2023-01-07)
PROC: 0DB98ZX Excision of Duodenum, Via Natural or Artificial Opening Endoscopic, Diagnostic (ICD-10-PCS; 2023-01-11)
PROC: 0DB78ZX Excision of Stomach, Pylorus, Via Natural or Artificial Opening Endoscopic, Diagnostic (ICD-10-PCS; 2023-01-11)
PROC: 0DB58ZX Excision of Esophagus, Via Natural or Artificial Opening Endoscopic, Diagnostic (ICD-10-PCS; 2023-01-11)
PROC: 0DB68ZZ Excision of Stomach, Via Natural or Artificial Opening Endoscopic (ICD-10-PCS; 2023-01-11)
PROC: 5A09357 Assistance with Respiratory Ventilation, Less than 24 Consecutive Hours, Continuous Positive Airway Pressure (ICD-10-PCS; 2023-01-12)
PROC: 5A09357 Assistance with Respiratory Ventilation, Less than 24 Consecutive Hours, Continuous Positive Airway Pressure (ICD-10-PCS; 2023-01-13)
PROC: 5A09357 Assistance with Respiratory Ventilation, Less than 24 Consecutive Hours, Continuous Positive Airway Pressure (ICD-10-PCS; 2023-01-14)
PROC: 5A09357 Assistance with Respiratory Ventilation, Less than 24 Consecutive Hours, Continuous Positive Airway Pressure (ICD-10-PCS; 2023-01-15)
DX: K29.71 Gastritis, unspecified, with bleeding (principal); I50.43 Acute on chronic combined systolic (congestive) and diastolic (congestive) heart failure; J96.21 Acute and chronic respiratory failure with hypoxia; J98.11 Atelectasis; I48.20 Chronic atrial fibrillation, unspecified; E66.2 Morbid (severe) obesity with alveolar hypoventilation; D62 Acute posthemorrhagic anemia; B37.81 Candidal esophagitis; Z68.41 Body mass index [BMI] 40.0-44.9, adult; K29.81 Duodenitis with bleeding; I11.0 Hypertensive heart disease with heart failure; K25.4 Chronic or unspecified gastric ulcer with hemorrhage; Z20.822 Contact with and (suspected) exposure to COVID-19; J44.9 Chronic obstructive pulmonary disease, unspecified; G25.81 Restless legs syndrome; E11.9 Type 2 diabetes mellitus without complications; I95.9 Hypotension, unspecified; E78.5 Hyperlipidemia, unspecified; M10.9 Gout, unspecified; K31.7 Polyp of stomach and duodenum; Z88.5 Allergy status to narcotic agent; Z79.01 Long term (current) use of anticoagulants; Z80.0 Family history of malignant neoplasm of digestive organs; Z90.49 Acquired absence of other specified parts of digestive tract
CPT/HCPCS: 36415; 71045; 71275; 80048; 80053; 80061; 81001; 82270; 82607; 82746; 82962; 83540; 83550; 83735; 83880; 84443; 84484; 85007; 85014; 85018; 85025; 85027; 85384; 85610; 85730; 86850; 86900; 86901; 86920; 87040; 87086; 87426; 93005; 93306; 93970; 94640; 94660; 97110; 97116; 97163; 97530; 99291; G0378; J1815; J2001; J2704

== ENCOUNTER 2023-06-18 12:22 | Inpatient (IN) | payer BC, MEDICAID ==
[~2023-06-18] VITALS: Ht 193 cm; Wt 125.0 kg
[~2023-06-18 12:22] MED LIST changes: +ARIP5TAB36 PO; +CHOL20007 PO; +FLUT1AER17 PO; +POTA10TA51 PO; +PRIM50TA5 PO; +ROPI4TAB6 PO; +TIOT1AER IN; +TRAM50TA2 PO
[2023-06-18 13:10] LABS: Basophils # (auto) 0 10 ^3/uL (0-0.2); Eosinophils # (auto) 0.2 10 ^3/uL (0-0.8); Lymphocytes # (auto) 1.4 10 ^3/uL (0.4-5.4); Monocytes # (auto) 0.6 10 ^3/uL (0-1.3); Nucleated Red Blood Cells % 0.1 %; White Blood Cell 5.3 10^3/uL (4.4-10.8)
[2023-06-18 13:11] LABS: Basophils % (auto) 0.8 % (0.0-2.0); Eosinophils % (auto) 4.5 % (0.0-7.0); Hematocrit 33.9 % (41.0-53.0); Hemoglobin 10.2 g/dL (13.5-17.5); Lymphocytes % (auto) 27.6 % (10.0-50.0); Mean Corpuscular Hemoglobin 21.8 pg (28.0-32.0); Mean Corpuscular Hgb Conc. 30.1 g/dL (32.0-36.0); Mean Corpuscular Volume 72.5 fL (80.0-100.0); Monocytes % (auto) 10.7 % (0.0-12.0); Neutrophils % (auto) 56.4 % (37.0-80.0); Red Blood Cells 4.68 10^6/uL (4.5-5.90); Red Cell Distribution Width 19.5 % (11.8-14.3)
[2023-06-18 13:37] LABS: Alanine Aminotransferase 24 U/L (7-40); Albumin 4.3 g/dL (3.2-4.8); Alkaline Phosphatase 71 U/L (46-116); Anion Gap 5 (5-15); Aspartate Aminotransferase 21 U/L (13-40); BUN/Creatinine Ratio 22.8 (10.0-20.0); Blood Urea Nitrogen 18 mg/dL (9-23); Calcium 9.8 mg/dL (8.7-10.4); Carbon Dioxide 33 mmol/L (20-30); Chloride 104 mmol/L (98-107); Glucose 137 mg/dL (74-106); Magnesium 1.9 mg/dL (1.6-2.6); Potassium 4.1 mmol/L (3.5-5.1); Sodium 142 mmol/L (136-145)
[2023-06-18 13:38] LABS: Bilirubin, Total 0.3 mg/dL (0.2-1.0); Total Protein 6.7 g/dL (5.7-8.2)
[2023-06-18 14:00] VITALS: PULSE 46; RESP 10; O2SAT 95
[2023-06-18] MEDS ORDERED: MORPHINE SULFATE INJ 2 MG/ml SYRG IV PRN (16:00)
[2023-06-18] MEDS ORDERED: ONDANSETRON HCL 4 MG/2 ML VIAL IV PRN (16:00)
[2023-06-18] MEDS ORDERED: NITROGLYCERIN 0.4 MG SL TAB SL PRN (16:00)
[2023-06-18] MEDS ORDERED: ALBUTEROL MEDNEB 2.5 mg/3ml NEB NEB PRN (16:15)
[2023-06-18] MEDS ORDERED: ATROPINE SULF 1 MG/10ml SYR IV PRN (18:45)
[2023-06-18 19:17] VITALS: PULSE 58; RESP 18; O2SAT 99
[2023-06-18 20:00] VITALS: PULSE 60; RESP 13; O2SAT 100
[2023-06-18] MEDS: MECLIZINE HCL 25 MG TAB PO SCH (22:00)
[2023-06-18] MEDS: PRIMIDONE 50 MG TAB PO SCH (22:00)
[2023-06-18] MEDS: GABAPENTIN 300 MG CAP PO SCH (22:13)
[2023-06-18] MEDS: APIXABAN 5 MG TAB PO SCH (22:13)
[2023-06-19] VITALS (8 sets, daily range): BP systolic 111–127; BP diastolic 53–89; PULSE 53–71; RESP 15–19; TEMP 98–98.2; O2SAT 97–100
[2023-06-19] MEDS: Fluticasone-Umeclidinium-Vilan (Trelegy Ellipta 200-62.5-25 Mcg/I PO SCH (10:00)
[2023-06-19] MEDS ORDERED: DONEPEZIL HYDROCHLORIDE 5 MG TAB PO SCH (10:00)
[2023-06-19] MEDS: PATIENTS OWN MEDICATION PO SCH (10:00)
[2023-06-19] MEDS: HYDROcodone-ACET 5/325MG TAB PO PRN ×2 (10:16→16:38)
[2023-06-19] MEDS: PANTOPRAZOLE 40 MG TAB PO SCH (10:16)
[2023-06-19] MEDS: POTASSIUM CHL 20 Meq TABLET PO SCH (10:16)
[2023-06-19] MEDS: FUROSEMIDE 40 MG TAB PO SCH (10:17)
[2023-06-19] MEDS ORDERED: APIX5TAB PO (11:03)
[2023-06-19] MEDS ORDERED: TIOT1AER IN (11:03)
[2023-06-19] MEDS ORDERED: CHOL20007 PO (11:03)
[2023-06-19] MEDS ORDERED: AMAN100T PO (11:03)
[2023-06-19] MEDS: DONEPEZIL HYDROCHLORIDE 5 MG TAB PO SCH (18:26)
[2023-06-20] VITALS (8 sets, daily range): BP systolic 126–140; BP diastolic 45–70; PULSE 51–65; RESP 16–20; TEMP 97.8–98.3; O2SAT 92–99
== END 2023-06-20 18:00 | disposition home or self-care (01) | DRG 312 ==
LOC: ER 12:22 → TELE 15:49 → TELE-EAST 06-19 10:00
PROVIDERS: ADMIT Hospitalist; ATTEND Hospitalist
DX: I95.2 Hypotension due to drugs (principal); J96.01 Acute respiratory failure with hypoxia; T46.1X5A Adverse effect of calcium-channel blockers, initial encounter; R00.1 Bradycardia, unspecified; I48.91 Unspecified atrial fibrillation; D64.9 Anemia, unspecified; J44.9 Chronic obstructive pulmonary disease, unspecified; I11.0 Hypertensive heart disease with heart failure; G47.00 Insomnia, unspecified; E11.42 Type 2 diabetes mellitus with diabetic polyneuropathy; G62.9 Polyneuropathy, unspecified; Z88.5 Allergy status to narcotic agent; Z91.018 Allergy to other foods; Z79.899 Other long term (current) drug therapy; Z79.2 Long term (current) use of antibiotics; Z82.49 Family history of ischemic heart disease and other diseases of the circulatory system; Z99.81 Dependence on supplemental oxygen; Y92.89 Other specified places as the place of occurrence of the external cause; Z80.0 Family history of malignant neoplasm of digestive organs
CPT/HCPCS: 36415; 70551; 71045; 80053; 82962; 83735; 84484; 85025; 93005; 93306; 97163; G0378

== ENCOUNTER 2024-01-29 21:59 | Inpatient (IN) | payer BC, MEDICAID ==
[~2024-01-29] VITALS: Ht 188 cm; Wt 132.4 kg
[~2024-01-29 21:59] MED LIST changes: +AMAN100T PO; +ARIP5TAB22 PO; -ARIP5TAB36 PO; -DILT120C54 PO; -LEVO500T31 PO; -LEVO750T8 PO; +POTA-36 PO; -POTA10TA51 PO; +ROPI4TAB23 PO; -ROPI4TAB6 PO
[2024-01-29 22:21] LABS: Basophils # (auto) 0 10 ^3/uL (0-0.2); Basophils % (auto) 0.6 % (0.0-2.0); Eosinophils # (auto) 0.2 10 ^3/uL (0-0.8); Eosinophils % (auto) 3.5 % (0.0-7.0); Hematocrit 41.9 % (41.0-53.0); Hemoglobin 13.5 g/dL (13.5-17.5); Lymphocytes # (auto) 1.2 10 ^3/uL (0.4-5.4); Lymphocytes % (auto) 20.5 % (10.0-50.0); Mean Corpuscular Hemoglobin 30.1 pg (28.0-32.0); Mean Corpuscular Hgb Conc. 32.3 g/dL (32.0-36.0); Mean Corpuscular Volume 93.1 fL (80.0-100.0); Monocytes # (auto) 0.6 10 ^3/uL (0-1.3); Monocytes % (auto) 10.6 % (0.0-12.0); Neutrophils # (auto) 3.8 10 ^3/uL (1.6-8.6); Neutrophils % (auto) 64.8 % (37.0-80.0); Nucleated Red Blood Cells % 0.8 %; Platelet Count (auto) 131 10^3/uL (140-450); Red Cell Distribution Width 16.5 % (11.8-14.3); White Blood Cell 5.9 10^3/uL (4.4-10.8)
[2024-01-29 22:30] VITALS: PULSE 61; RESP 21; O2SAT 96
[2024-01-29] MEDS: ALBUTEROL SULF 2.5 MG/0.5ML(0.5%) NEB SOLN NEB ONE (22:30)
[2024-01-29] MEDS: IPRATROPIUM BROM 0.5 MG/2.5ML INH SOL NEB ONE (22:30)
[2024-01-29 22:37] LABS: Base Excess 7.2 mmol/L (-2.0-3.0)
[2024-01-29 22:37] LABS: Alanine Aminotransferase 39 U/L (7-40); Albumin 4.4 g/dL (3.2-4.8); Alkaline Phosphatase 62 U/L (46-116); Anion Gap 4 (5-15); Aspartate Aminotransferase 27 U/L (13-40); BUN/Creatinine Ratio 16.1 (10.0-20.0); Blood Urea Nitrogen 14 mg/dL (9-23); Calcium 9.6 mg/dL (8.7-10.4); Carbon Dioxide 39 mmol/L (20-31); Chloride 101 mmol/L (98-107); Glucose 122 mg/dL (74-106); Magnesium 1.9 mg/dL (1.6-2.6); Potassium 3.8 mmol/L (3.5-5.1); Sodium 144 mmol/L (136-145)
[2024-01-29 22:38] LABS: Bilirubin, Total 0.4 mg/dL (0.2-1.0); Total Protein 6.9 g/dL (5.7-8.2)
[2024-01-29] MEDS: methylPREDNISolone SOD SUCC 125 MG/2 ML VL IV ONE (22:38)
[2024-01-29] MEDS: FUROSEMIDE 40 MG/4 ML VIAL IV ONE (22:40)
[2024-01-29] MEDS ORDERED: HYDROcodone-ACET 5/325MG TAB PO PRN (23:15)
[2024-01-29] MEDS ORDERED: ACETAMINOPHEN 325 MG TAB PO PRN (23:15)
[2024-01-29] MEDS ORDERED: ONDANSETRON HCL 4 MG/2 ML VIAL IV PRN (23:15)
[2024-01-29 23:39] LABS: Urine Bacteria None Seen /hpf (None Seen)
[2024-01-29 23:42] VITALS: BP 120/56; PULSE 61; RESP 16; O2SAT 98
[2024-01-29] MEDS: ENOXAPARIN SOD 40 MG/0.4 ML SYRINGE SC SCH (23:49)
[2024-01-29 23:53] LABS: Urine Blood Negative /uL (Negative); Urine Clarity Clear (Clear); Urine Color Colorless (Yellow); Urine Protein, UAD Negative (Negative); Urine Specific Gravity 1.008 (1.001-1.035); Urine Urobilinogen Normal (Negative); Urine WBC 1 /hpf (0 - 3)
[2024-01-30] VITALS (15 sets, daily range): BP systolic 107–139; BP diastolic 54–83; PULSE 56–74; RESP 18–21; TEMP 97.6–98.1; O2SAT 91–97
[2024-01-30 00:43] LABS: Base Excess 4.3 mmol/L (-2.0-3.0)
[2024-01-30] MEDS: IPRATROPIUM BROM 0.5 MG/2.5ML INH SOL NEB SCH (02:24)
[2024-01-30 02:40] LABS: Base Excess 12.1 mmol/L (-2.0-3.0)
[2024-01-30] MEDS: ALBUTEROL SULF 2.5 MG/0.5ML(0.5%) NEB SOLN NEB PRN (06:14)
[2024-01-30] MEDS: APIXABAN 5 MG TAB PO SCH (10:00)
[2024-01-30] MEDS: PANTOPRAZOLE 40 MG/10 ML VIAL INJ IV SCH (10:10)
[2024-01-30] MEDS: methylPREDNISolone SOD SUCC 40 MG/ML VL IV SCH (10:11)
[2024-01-30] MEDS: GABAPENTIN 300 MG CAP PO SCH (10:11)
[2024-01-30] MEDS: DONEPEZIL HYDROCHLORIDE 5 MG TAB PO SCH (10:13)
[2024-01-30] MEDS: buPROPion HCL 100 MG TAB PO SCH (10:14)
[2024-01-30] MEDS ORDERED: FURO40TA4 PO (17:03)
[2024-01-30] MEDS ORDERED: CHOL100029 PO (17:03)
[2024-01-30] MEDS ORDERED: GABA-339 PO (17:03)
[2024-01-30] MEDS: AZITHROMYCIN 500MG/ 250ML 250 ML IV SCH (23:51)
[2024-01-31] VITALS (13 sets, daily range): BP systolic 120–155; BP diastolic 48–95; PULSE 55–70; RESP 16–19; TEMP 36.6; O2SAT 94–99
[2024-01-31] MEDS ORDERED: METH4PAK PO (15:41)
[2024-01-31] MEDS ORDERED: IPRA0.03 (15:41)
[2024-01-31] MEDS ORDERED: ALBU1NEB5 IN (15:41)
[2024-01-31] MEDS ORDERED: AZIT500T66 PO (15:41)
[2024-01-31] MEDS ORDERED: NEBUMIS40 XX (15:45)
== END 2024-01-31 17:50 | disposition home or self-care (01) | DRG 291 ==
LOC: ER 21:59 → EDBD 21:59 → TELE 23:29 → TELE-CENTR 01-30 16:00
PROVIDERS: ADMIT Nurse Practitioner Family; ATTEND Internal Medicine
PROC: 5A09357 Assistance with Respiratory Ventilation, Less than 24 Consecutive Hours, Continuous Positive Airway Pressure (ICD-10-PCS; principal; 2024-01-29)
PROC: 5A09357 Assistance with Respiratory Ventilation, Less than 24 Consecutive Hours, Continuous Positive Airway Pressure (ICD-10-PCS; 2024-01-30)
PROC: 5A09357 Assistance with Respiratory Ventilation, Less than 24 Consecutive Hours, Continuous Positive Airway Pressure (ICD-10-PCS; 2024-01-30)
DX: I11.0 Hypertensive heart disease with heart failure (principal); I50.33 Acute on chronic diastolic (congestive) heart failure; J96.21 Acute and chronic respiratory failure with hypoxia; J96.22 Acute and chronic respiratory failure with hypercapnia; J44.1 Chronic obstructive pulmonary disease with (acute) exacerbation; F03.918 Unspecified dementia, unspecified severity, with other behavioral disturbance; G47.33 Obstructive sleep apnea (adult) (pediatric); E66.01 Morbid (severe) obesity due to excess calories; J98.4 Other disorders of lung; F51.04 Psychophysiologic insomnia; I48.91 Unspecified atrial fibrillation; E11.9 Type 2 diabetes mellitus without complications; Z79.84 Long term (current) use of oral hypoglycemic drugs; Z80.0 Family history of malignant neoplasm of digestive organs; Z68.37 Body mass index [BMI] 37.0-37.9, adult; Z99.81 Dependence on supplemental oxygen; Z87.891 Personal history of nicotine dependence
CPT/HCPCS: 36415; 36600; 71045; 80053; 81001; 82805; 83605; 83735; 83880; 84484; 85025; 93005; 94640; 94660; 99291; G0378; J2470